=== PATIENT | male | born 1995 | race Caucasian/White ===

== ENCOUNTER → 2016-12-16 | Outpatient (CLI) | payer OTHER ==
--- NOTE | 2016-12-16 14:46 | KCIC ---
Examination: CT left shoulder without contrast. HISTORY: History of recurrent dislocations for one year COMPARISON: None available Technique: Axial CT images of the left shoulder were performed without contrast . Coronal and sagittal reformats are performed Exposure: One or more of the following individualized dose reduction techniques were utilized for this examination: 1. Automated exposure control 2. Adjustment of the mA and/or kV according to patient size 3. Use of iterative reconstruction technique FINDINGS: There is mild superior translation of the humerus head in relation to glenoid. There is a small bony density identified posterior to the coracoid could be an avulsion fracture fragment or loose body. There is blunting of the anteroinferior glenoid with elevation of the anterior periosteum probably a bony Bankart lesion. The acromioclavicular joint grossly appears unremarkable. Acromion is type I. Bony defect identified in the posterolateral humerus head measuring 7.5 mm deep likely Hill-Sachs lesion. IMPRESSION: 1. Blunting of the anteroinferior glenoid with elevation of the anterior bony periosteum in the anterior inferior glenoid likely a bony Bankart. Bony defect identified in the posterolateral humerus head measuring 7.5 mm in depth likely a Hill-Sachs lesion. MRI may be useful for further evaluation. 2. Well-formed bone density identified posterior to the coracoid process is seen on the axial image series 2 image 18 could be a avulsion fracture fragment or loose body. 3. Mild superior translation of the humerus in relation to glenoid. Underlying rotator cuff pathology not excluded. Electronically signed by: Theo Pedro MD (12/16/2016 2:43 PM) [id number]
== END | disposition home or self-care (01) ==
LOC: KCIC CT 13:41
PROVIDERS: ATTEND Orthopaedic Surgery
DX: M24.412 Recurrent dislocation, left shoulder (principal)
CPT/HCPCS: 73200

== ENCOUNTER 2020-11-06 06:17 | Day surgery (SDC) | payer OTHER ==
[2020-11-06] MEDS ORDERED: LIDOCAINE 2% PF 5 ML VIAL. ONE (07:17)
[2020-11-06] MEDS ORDERED: PROPOFOL 10 MG/ML (20ML) VIAL. IV ONE (07:17)
[2020-11-06 08:14] VITALS: BP 121/62
[2020-11-06] MEDS ORDERED: ACETAMINOPHEN/CODEINE 300/30MG TABLET. PO ONE (08:15)
[2020-11-06] MEDS ORDERED: ACET1TAB33 PO (08:17)
--- NOTE | 2020-11-06 08:21 | DISCH ---
DISCHARGE INSTRUCTIONS Condition on Discharge Condition on Discharge: Stable Activity After Discharge Activity Instructions for Disc: Other, see below (stay in immobilizer except for hanging arm to side in shower or fine motor activity like eating writing typing etc) Lifting Instructions after Dis: No heavy lifting, No pulling or pushing Weight Bearing Status after Di: Non weight bearing Diet after Discharge Diet after Discharge: Regular Wound Incision Care Wound/Incision Care: No wound care needed Contacting the DRMelvina after DC Call your doctor for: Concerns you may have Follow-Up Follow up with: Dr. Brown after CT of left shoulder RENEE BROWN MD Nov 06, 2020 08:21
--- NOTE | 2020-11-06 08:25 | CONS ---
DATE OF CONSULTATION: 11/06/2020 EMERGENCY DEPARTMENT CONSULTATION AND PREOPERATIVE HISTORY AND PHYSICAL WITH SURGERY DECISION. CHIEF COMPLAINT: Left shoulder recurrent dislocation. HISTORY OF PRESENT ILLNESS: The patient is a 25-year-old male who reports that he has had the first shoulder dislocation at approximately 18 years old of the left shoulder. He said it did come out multiple times since. It appears on records review that he had a closed reduction done at the [facility] Emergency Department in April. He said he had surgery on the left shoulder by Dr. Loyola about 6 months ago, really has not had much followup and he said he has been having some difficulty in terms of arranging physical therapy and has just been doing exercises sporadically on his own. He states that he was dancing around, just moving his arms out to the side and his left shoulder spontaneously dislocated. He states that there was no traumatic event in terms of no fall or the arm being forced in a certain position. He had the sudden onset of pain recognized that is being dislocated and really could not move it. On a report from Dr. Potter, he had contacted Dr. Loyola who stated that he cannot see the patient because he would need a referral. I asked Dr. Potter why that is any different for us. He said he did not know, but Dr. Loyola would not take care of him because he does not have hospital privileges. Dr. Potter had asked if he can be transferred down here and admitted to the hospitalist, I told him no, that this needed to be done immediately. He has a shoulder dislocation that is an emergent risk, particularly to the axillary nerve function potentially and this should not be delayed. I did, however, suggest that Virgilio's follow-up care or lack thereof from his original surgeon is a problem that Dr. Potter should address, specifically that it is improper for the treating surgeon to just indicate "transfer to [facility] where the shoulder dislocation can be emergently addressed". I did ask Dr. Potter however to immediately transfer the patient to [place] and as soon as he gets here we would make preparations in the operating room to perform closed versus open reduction if required. I also requested that the problem with the patient's care be appropriately documented and reported. PAST MEDICAL HISTORY: Significant for Crohn's disease, anxiety, depression, and asthma, which he had as a child and is now largely resolved. FAMILY HISTORY: He denies any significant family history. 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 He states that he smokes less than a pack a day, occasional marijuana use. Recently, he does have the COVID vaccination and occasional use of alcohol. ALLERGIES: Include what sounds like an intolerance to FLUTICASONE AND SALMETEROL, which he says did not help his asthma as a child. REVIEW OF SYSTEMS: His review of systems is negative for any recent trauma, fever, chills, constitutional symptoms. No loss of consciousness associated with the issue. It is also significant for the history of previous multiple dislocations and surgery 6 months ago and the recurrence today. Denies any other joint pain. No evidence of joint hypermobility or instability of other joints. PHYSICAL EXAMINATION: GENERAL: He is a pleasant, cooperative 25-year-old male. VITAL SIGNS: Blood pressure 121/82, pulse 53, respirations 20, 96% saturation on room air. HEENT: Atraumatic, normocephalic. HEART: Regular rate and rhythm. LUNGS: Clear to auscultation bilaterally. ABDOMEN: Benign. EXTREMITIES: Examination of the left shoulder reveals well-healed arthroscopic portals from previous shoulder arthroscopy and what appears to be an anterior inferior dislocation of the left shoulder. His sensation over his deltoid appears to be intact. He has a lot of pain, so I cannot see if he is able to fire his deltoid muscle. There is no parascapular winging. No tenderness or instability over the acromioclavicular joint. He has normal examination of the contralateral right shoulder, bilateral elbows and wrists. IMAGING STUDIES: From [facility] Emergency Department show 2 views of the left shoulder showing anterior inferior dislocation of the left humeral head. IMPRESSION: 1. Recurrent dislocation, left shoulder. 2. History of left shoulder arthroscopic stabilization. TREATMENT PLAN: I went over with patient the immediate concern of the shoulder being dislocated and the potential of stretching the nerves and potential damage to the motor or sensory functions of the nerves. Additionally, the high degree of possibility of recurrent dislocations as he has had them in the past and had another one following his surgery with basically an atraumatic origin. I discussed with him the orientation of the glenoid and the significance of a possible divot in the humerus, call the Hill-Sachs lesion that can increase his likelihood of engagement of that lesion and therefore dislocation. I went over with him in the near term emergently that we want to get this reduced and I plan to do this in the Emergency Department this morning. He had arrived a little after 6 a.m. and instead of him going up to the floor, I had him brought down immediately to preoperative holding where he was evaluated, found to have eaten last just before the occurrence of this issue and presentation to the Emergency Department around 11:00 p.m. from his recollection, which should meet the 6-hour n.p.o. rule for anesthesia, regardless of the emergency nature and I talked about the goal of a closed reduction, potentially an open procedure to get the shoulder back in place, but I would prefer closed reduction and then imaging via CT scan to see what his bony morphology looks like as we had a discussion about the reasons for potential failure of arthroscopic treatment, that the tissue could fail, but if a bony deficit is present that significantly increases the risk of failure and would potentially indicate other methods of stabilization including bony augmentation with open surgery. We covered also risks, benefits, postoperative course of the nerve stretch or injury associated with the dislocation or the relocation process. He understands this as well as the urgency of getting the shoulder reduced and agrees to proceed with surgical evaluation and treatment for the reduction process. Again, that is plan for the operating room rather than the Emergency Department given the failure of closed reduction at [facility]. AZAM DR: Beverly TID: [id number] MEREDITH
--- NOTE | 2020-11-06 12:03 | PDOC4 ---
Operative Note Operative Note Date of surgery: 11/06/2020 Preoperative diagnosis: Recurrent dislocation left shoulder, atraumatic, following arthroscopic surgical stabilization Postoperative diagnosis: Same with suspected engaging Hill-Sachs lesion Operative procedure: Closed reduction left shoulder dislocation Surgeon: Stephanie Anesthesia: Deep sedation provided by anesthesia Complications: None Operative indications: Please see my dictated orthopedic consultation of today for detailed operative indications and note that we covered the recommendation for emergent reduction of his shoulder dislocation by hopefully closed means potentially open if required. We then covered the ongoing concern for atraumatic failure of the arthroscopic Bankart repair and briefly discussed some ongoing testing including CT scan to further evaluate glenohumeral morphology to help direct ongoing treatment. All his questions were answered and he wishes to proceed with the reduction attempt under anesthesia, acknowledging the possibility with the dislocation or the reduction process of potential nerve,blood vessel, or bone damage, recurrent instability, medical or other anesthetic complications among others. Operative text: Patient was identified procedure verified patient placed in the supine position on the recovery room cart and after adequate amounts of deep sedation provided by anesthesia, the shoulder joint was attempted to be reduced using traction countertraction and initially he was noted to have likely engagement of the Hill-Sachs lesion preventing closed dislocation but on additional manipulation to relax the joint, the Hill-Sachs lesion was disengaged and satisfactory reduction verified on AP and scapular Y flatplate x-rays in the operating room. He was kept in the immobilizer for x-rays following the reduction procedure and returned to recovery room in stable condition with axillary nerve sensation and deltoid function noted to be intact postoperatively. RENEE DAWSON MD Nov 06, 2020 12:03
--- NOTE | 2020-11-06 16:12 | RAD ---
EXAM: XR SHOULDER_LEFT 2+ VIEWS 11/06/2020 7:33 AM CLINICAL INDICATION: Post reduction in OR COMPARISON: Left shoulder radiograph 11/06/2020 and 04/06/2020 TECHNIQUE: AP and scapular Y view of the left shoulder FINDINGS: There has been interval reduction of the left glenohumeral dislocation. There is an unchan ged Hill-Sachs fracture of the humeral head. No definite new fracture. The acromioclavicular joint is normal. IMPRESSION: Interval reduction of left glenohumeral dislocation. Unchanged chronic Hill-Sachs fractu re. Electronically signed by: Ericka Dias MD (11/06/2020 4:10 PM) [id number]
== END 2020-11-06 08:42 | disposition home or self-care (01) ==
LOC: SURG 06:17
PROVIDERS: ATTEND Orthopaedic Surgery
DX: M24.412 Recurrent dislocation, left shoulder (principal); F41.9 Anxiety disorder, unspecified; F32.9 Major depressive disorder, single episode, unspecified; J45.909 Unspecified asthma, uncomplicated; Z87.891 Personal history of nicotine dependence; Z79.899 Other long term (current) drug therapy; Z88.8 Allergy status to other drugs, medicaments and biological substances
CPT/HCPCS: 23655; 73030; J2704